=== PATIENT | male | born 1930 | race Caucasian/White ===

== ENCOUNTER → 2016-09-25 | Outpatient (CLI) | payer OTHER ==
[~2016-09-25] MED LIST: ACETAMINOPHEN325 M1 PO; ADRENAL; ALEVE220 M1 PO; ALPRAZOLAM 0.0.25 MG PO; ANTACID650 MG PO; ASPIR-LOW81 MG PO; ASPIRIN325 PO; ATENOLOL 50MG T50 M1 PO; B-100 COMPLEX1 EAC1 PO; BENICAR 5 MG5 M1 PO; BENZOCAINE TOP; BENZONATATE100 MG PO; BISAC-EVAC10 MG RECTAL; BISACODYL SUPP10 MG RECTAL; BYSTOLIC 5 MG5 M1 PO; CALCIUM500 MG PO; CALMOSEPTINE OI71 GM; CARAFATE 1 GM TA1 G1 PO; CARDIZEM SR120 MG PO; CIPROFLOXACIN500 M1 PO; CLONAZEPAM PO; COLACE 100 MG100 MG PO; COLACE100 MG PO; COUMADIN 2 MG TA2 M1 PO; CYCLOBENZAPRINE10 MG PO; DAIRY RELIE3000 UNIT PO; DEMADEX20 MG PO; DESMOPRESSIN A0.2 M2 PO; DILTIAZEM ER240 M1 PO; DUONEB 2.5-0.5 M3 ML INH; EFFEXOR XR75 MG PO; ENABLEX15 MG PO; FISH OIL 1,0001 EAC5 PO; FISHOIL; FLEET ENEMA118 ML RECTAL; FOLIC ACID1 MG PO; GABAPENTIN100 MG PO; GABAPENTIN800 MG PO; GARLIC OIL1 EAC1 PO; GINKGO BILOBA120 MG PO; GINSANA100 M1 PO; GLUCERNA1 EACH PO; HYDRALAZINE 10M10 MG PO; HYDROCODON-ACE1 EAC7 PO; IRON DEXTRAN IM; IRON PO; IRON325 PO; ISORDIL10 MG PO; JANUVIA100 MG PO; JANUVIA25 MG PO; JANUVIA50 MG PO; LACTULOSE10 GM/153 PO; LASIX 80 MG TAB80 MG PO; LIPITOR20 MG PO; LIVALO4 MG PO; LOPERAMIDE2 MG; LORTAB 5 MG/5001 TA1 PO; LOVAZA1000 MG PO; MECLIZINE HCL12.5 MG PO; METOPROLOL 100100 M1 PO; MOM PO; MUCINEX600 MG PO; MULTI VITAMINS; NAMENDA 10 MG T10 MG PO; NAMENDA 5 MG TAB5 M1 PO; NEURONTIN 300300 M1 PO; NEURONTIN 300M300 M2 PO; NEURONTIN100 MG PO; NEURONTIN600 MG PO; NITROSTAT0.4 MG SUBLING; ODORLESS GARLI500 MG PO; OMEPRAZOLE 20 M20 M1 PO; OXECTA5 MG PO; PAIN RELIEVER325 MG PO; POLYETHYLENE G454 GM PO; POTASSIUM CHLO10 ME1 PO; PRADAXA75 MG PO; PROTONIX40 M1 PO; PROTONIX40 M2 PO; RULOX SUSPENSI355 ML PO; SEROQUEL 100 M100 M2 PO; SEROQUEL 50 MG50 MG PO; SPIRIVA INH; TOPROL XL50 MG PO; TRIPLE ANTIBIO1 EACH; TYLENOL EX-STR500 M2 PO; VENLAFAXINE HCL75 MG PO; VENTOLIN HFA INH8 GM; VITAMIN B-12500 MCG PO; VITAMIN C100 M1 PO; VITAMIN D1000 UNI1 PO; VITAMIN E400 UNIT PO; VITAMINC500 PO; VOLTAREN GEL 1100 G1; WELLBUTRIN XL150 M1 PO; ZOLOFT100 MG PO; ZYVOX600 MG; [UNRECOGNIZED DRUG - CODE]; [UNRECOGNIZED DRUG - OTHER]; [UNRECOGNIZED DRUG - OTHER] PO
[2016-09-25 09:45] VITALS: BP 103/49
[2016-09-25 10:30] VITALS: BP 103/51
[2016-09-25 11:09] VITALS: BP 113/48
[2016-09-25 11:23] VITALS: BP 113/48
[2016-09-25 12:19] VITALS: BP 115/58
== END ==
LOC: OPONC 10:06
DX: D63.1 Anemia in chronic kidney disease (principal)
CPT/HCPCS: 95000; 95001; 95113

== ENCOUNTER → 2016-09-27 | Outpatient (CLI) | payer OTHER ==
[2016-09-27 10:10] VITALS: BP 126/59
[2016-09-27 11:20] VITALS: BP 119/58
== END ==
LOC: OPONC 02:06
DX: N18.9 Chronic kidney disease, unspecified (principal); D63.1 Anemia in chronic kidney disease
CPT/HCPCS: 95000; 95001

== ENCOUNTER → 2016-09-29 | Outpatient (CLI) | payer OTHER ==
[2016-09-29 14:36] VITALS: BP 116/61
== END ==
LOC: OPONC 05:00
DX: N18.9 Chronic kidney disease, unspecified (principal); D63.1 Anemia in chronic kidney disease
CPT/HCPCS: 95112